=== PATIENT | female | born 1990 | race Caucasian/White ===

== ENCOUNTER 2017-11-20 15:41 | Emergency (ER) | payer SELFPAY ==
[2017-11-20] MEDS ORDERED: IBUPROFEN 800 MG TABLET PO ONE (17:09)
--- NOTE | 2017-11-20 17:15 | ER Document Report ---
ED Medical Screen (RME) - General Chief Complaint: Pain Stated Complaint: LEG/NECK/ARM PAIN Time Seen by Provider: 11/20/17 17:09 Mode of Arrival: Wheelchair Information source: Patient TRAVEL OUTSIDE OF THE [place] IN LAST 30 DAYS: No - HPI Patient complains to provider of: pain in feet, arms, neck, legs Onset: Other - pt states she hsa had pain in her feet, arms, neck , and legs for several days. Denies h/o trauma - Related Data Allergies/Adverse Reactions: No Known Allergies Allergy (Verified 11/20/17 15:48) Past Medical History Pulmonary Medical History: Reports: Hx Asthma GI Medical History: Reports: Hx Gastroesophageal Reflux Disease, Hx Ulcer - Immunizations Hx Diphtheria, Pertussis, Tetanus Vaccination: Yes - 2011 Physical Exam - Vital signs Vitals: Temp Pulse Resp BP Pulse Ox 98.4 F 92 16 142/92 H 97 11/20/17 16:14 11/20/17 16:14 11/20/17 16:14 11/20/17 16:14 11/20/17 16:14 Course - Vital Signs Vital signs: Temp Pulse Resp BP Pulse Ox 98.4 F 92 16 142/92 H 97 11/20/17 16:14 11/20/17 16:14 11/20/17 16:14 11/20/17 16:14 11/20/17 16:14
[2017-11-20 17:53] LABS: ABSOLUTE EOSINOPHILS # (AUTO) 0.2 10^3/uL (0.0-0.6); ABSOLUTE LYMPHOCYTES (AUTO) 2.7 10^3/uL (0.5-4.7); ABSOLUTE MONOCYTES (AUTO) 0.5 10^3/uL (0.1-1.4); ABSOLUTE NEUT (AUTO) 5.6 10^3/uL (1.7-8.2); BASOPHILS % (AUTO) 0.5 % (0-2); EOSINOPHILS % (AUTO) 2.4 % (0-6); HEMATOCRIT 47.3 % (36.0-47.0); HEMOGLOBIN 16.3 g/dL (12.0-15.5); MEAN CORPUSCULAR HEMOGLOBIN 32.1 pg (27.0-33.4); MEAN CORPUSCULAR HGB CONC 34.5 g/dL (32.0-36.0); MEAN CORPUSCULAR VOLUME 93 fl (80-97); MONOCYTES % (AUTO) 5.9 % (3-13); PLATELET COUNT 283 10^3/uL (150-450); RED BLOOD COUNT 5.08 10^6/uL (3.72-5.28); RED CELL DISTRIBUTION WIDTH 12.7 % (11.5-14.0); SEGMENTED NEUTROPHILS % (AUTO) 61.2 % (42-78); TOTAL CELLS COUNTED % (AUTO) 100 %; WHITE BLOOD COUNT 9.1 10^3/uL (4.0-10.5)
[2017-11-20 18:00] LABS: APPEARANCE,URINE CLEAR; BILIRUBIN,URINE NEGATIVE (NEGATIVE); COLOR,URINE YELLOW; GLUCOSE, URINE NEGATIVE (NEGATIVE); KETONES,URINE 20 mg/dL (NEGATIVE); LEUKOCYTE ESTERASE,URINE NEGATIVE (NEGATIVE); NITRITE,URINE NEGATIVE (NEGATIVE); PROTEIN,URINE NEGATIVE (NEGATIVE); URINE SPECIFIC GRAVITY 1.005; UROBILINOGEN,URINE NEGATIVE mg/dL (<2.0)
[2017-11-20 18:11] LABS: ALANINE AMINOTRANSFERASE 74 U/L (9-52); ALBUMIN 4.9 g/dL (3.5-5.0); ALKALINE PHOSPHATASE 91 U/L (38-126); ANION GAP 13 (5-19); ASPARTATE AMINO TRANSFERASE 28 U/L (14-36); BILIRUBIN,DIRECT 0.4 mg/dL (0.0-0.4); BILIRUBIN,TOTAL 0.7 mg/dL (0.2-1.3); BLOOD UREA NITROGEN 9 mg/dL (7-20); CALCIUM 10.4 mg/dL (8.4-10.2); CARBON DIOXIDE 26 mmol/L (22-30); CHLORIDE 101 mmol/L (98-107); GLUCOSE 92 mg/dL (75-110); POTASSIUM 4.7 mmol/L (3.6-5.0); SODIUM 139.5 mmol/L (137-145); TOTAL PROTEIN 8.3 g/dL (6.3-8.2)
--- NOTE | 2017-11-20 18:33 | ER Document Report ---
ED General - General Chief Complaint: Pain Stated Complaint: LEG/NECK/ARM PAIN Time Seen by Provider: 11/20/17 17:09 Mode of Arrival: Wheelchair Notes: 27-year-old female presents with foot and leg pain chronic for several weeks, she attributed to plantar fasciitis. It is worse when she lays down. She has no numbness or tingling, no injury no trauma no muscle swelling. No changes in urination. Previously had multiple x-rays and is been seeing primary care doctor is [place] state but is to stop itching care here. No fever or chills. TRAVEL OUTSIDE OF THE [place] IN LAST 30 DAYS: No - Related Data Allergies/Adverse Reactions: No Known Allergies Allergy (Verified 11/20/17 17:10) Past Medical History - General Information source: Patient - Social History Smoking Status: Current Every Day Smoker Frequency of alcohol use: None Drug Abuse: None Family History: Reviewed & Not Pertinent Patient has suicidal ideation: No Patient has homicidal ideation: No Pulmonary Medical History: Reports: Hx Asthma Renal/ Medical History: Denies: Hx Peritoneal Dialysis GI Medical History: Reports: Hx Gastroesophageal Reflux Disease, Hx Ulcer - Immunizations Hx Diphtheria, Pertussis, Tetanus Vaccination: Yes - 2011 Review of Systems - Review of Systems Notes: REVIEW OF SYSTEMS GEN: Denies fever, chills, weight loss ENT: Denies sore throat, nasal discharge, ear pain EYES: Denies blurry vision, eye pain, discharge CV: Denies chest pain, palpitations, edema RESP: Denies cough, shortness of breath, wheezing GI: Denies abdominal pain, nausea, vomiting, diarrhea MSK: Bilateral arm shoulder neck foot and ankle pain SKIN: Denies rash, skin lesions. Thinks that she has a easy bruising on her feet. LYMPH: Denies swollen glands/lymph nodes NEURO: Denies headache, focal weakness or numbness, dizziness PSYCH: Denies depression, suicidal or homicidal ideation PHYSICAL EXAMINATION General: No acute distress, well-nourished Head: Atraumatic, normocephalic ENT: Mouth normal, oropharynx moist, no exudates or tonsillar enlargement Eyes: Conjunctiva normal, pupils equal, lids normal Neck: No JVD, supple, no guarding CVS: Normal rate, regular rhythm, no murmurs Resp: No resp distress, equal and normal breath sounds bilaterally GI: Nondistended, soft, no tenderness to palpation, no rebound or guarding Ext: No deformities, no edema, normal range of motion in upper and lower ext Back: No CVA or midline TTP Skin: No rash, warm Lymphatic: No lymphadeopathy noted Neuro: Awake, alert. Face symmetric. GCS 15. Physical Exam - Vital signs Vitals: Temp Pulse Resp BP Pulse Ox 98.4 F 92 16 142/92 H 97 11/20/17 16:14 11/20/17 16:14 11/20/17 16:14 11/20/17 16:14 11/20/17 16:14 Course - Re-evaluation Re-evalutation: 11/20/17 18:35 Chronic musculoskeletal complaints without acute signs of septic arthritis, skin infections and sepsis or neurologic disease. Patient looks well. Labs were sent and are normal. Recommend follow-up with primary care. Doubt rhabdo. I have discussed with the patient there likely diagnosis, aftercare plan, follow-up plans and my usual and customary return precautions. They verbalized understanding of this. - Vital Signs Vital signs: Temp Pulse Resp BP Pulse Ox 98.4 F 92 16 142/92 H 97 11/20/17 16:14 11/20/17 16:14 11/20/17 16:14 11/20/17 16:14 11/20/17 16:14 - Laboratory Result Diagrams: 11/20/17 17:30 11/20/17 17:30 Laboratory results interpreted by me: 11/20/17 11/20/17 11/20/17 17:15 17:30 17:30 Hgb 16.3 H Hct 47.3 H Calcium 10.4 H ALT 74 H Total Protein 8.3 H Urine Ketones 20 H Discharge - Discharge Clinical Impression: Leg pain, bilateral Condition: Good Disposition: HOME, SELF-CARE Instructions: Chronic Pain Control ([facility]) Additional Instructions: Please take Motrin for pain keep well-hydrated and see her regular doctor within 1 week. We did not find an emergency cause of your pain.
[2017-11-20 18:56] VITALS: BP 138/88
== END 2017-11-20 18:54 | disposition home or self-care (01) ==
LOC: ER 15:41
DX: M79.604 Pain in right leg (principal); M79.605 Pain in left leg; M79.673 Pain in unspecified foot; G89.29 Other chronic pain; M25.511 Pain in right shoulder; M25.512 Pain in left shoulder; M79.601 Pain in right arm; M79.602 Pain in left arm; M25.571 Pain in right ankle and joints of right foot; M25.572 Pain in left ankle and joints of left foot; M54.2 Cervicalgia; F17.200 Nicotine dependence, unspecified, uncomplicated; J45.909 Unspecified asthma, uncomplicated
CPT/HCPCS: 36415; 80053; 81001; 81025; 82550; 85025; 99283